=== PATIENT | female | born 1990 | race Caucasian/White ===

== ENCOUNTER 2018-09-20 06:15 | Inpatient (IN) | END 2018-09-22 14:43 | disposition home or self-care (01) | DRG 807 ==

== ENCOUNTER 2019-02-24 06:13 | Day surgery (SDC) | payer MEDICAID ==
[2019-02-24] VITALS (8 sets, daily range): BP systolic 90–116; BP diastolic 62–76; PULSE 73–82; RESP 16–27
[~2019-02-24] VITALS: Ht 152.4 cm; Wt 78.1 kg
[~2019-02-24 06:13] MED LIST: CEFAZOLIN 2 GM/50 ML (PMX) 50 ML IVPB ONE; IBUP-1542 PO; LACTATED RINGER'S 1,000 ML IV* ONE; PREN-39 PO
[2019-02-24] MEDS ORDERED: ACETAMINOPHEN 500 MG TAB PO ONE (06:30)
[2019-02-24] MEDS ORDERED: LIDOCAINE 2% (SDV) 5 ML INJ ONE (07:00)
--- NOTE | 2019-02-24 07:06 | PREAC ---
Date/Time of Note Date/Time of Note DATE: 02/24/19 TIME: 07:05 Anesthesia Eval and Record Evaluation Time Pre-Procedure Interview DATE: 02/24/19 TIME: 07:05 Age 28 Sex female NPO: 8 hrs Preoperative diagnosis elective sterilization Planned procedure laparoscopic tubal fulguration Past Medical History Past Medical History: Includes GI: Obesity Surgery & Anesthesia Issues No known issue Meds Anticoagulation: No Beta Shyam within 24 hr: No Reason Beta Shyam not given: Pt. not on B-Shyam Discontinued Reported Medications Vits W-Ca,Fe,Fa(<1MG) ( Vitamins) 1 Tab Tablet, 1 TAB PO DAILY 06/09/14 Discontinued Scripts Ibuprofen* (Ibuprofen*) 600 Mg Tab, 600 MG PO Q6, #20 TAB 0 Refills Prov:NORMAN CHAMBERS MD 10/04/15 Current Medications Lactated Ringer's 1,000 ml @ 125 mls/hr Q8H ONCE IV* ; Start 02/24/19 at 05:30; Stop 02/24/19 at 13:29 Meds reviewed: Yes Allergies Coded Allergies: No Known Allergy (Unverified , 02/24/19) Allergies Reviewed: Yes Labs/Studies Labs Reviewed: Reviewed by anesthesiologist test: Negative Pre-procedure Exam Airway: Adequate mouth opening, Adequate thyromental dist Mallampati: Mallampati II Teeth: Normal (missing lower left molar) Lung: Normal Heart: Normal ASA Physical Status ASA physical status: 2 Emergency: None Pre-operative Attestations Prior to commencing anesthesia and surgery, the patient was re-evaluated, there was verification of: *The patient's identity *The results of appropriate recent lab work and preoperative vital signs *The above evaluation not changing prior to induction *Anesthetic plan, risk benefits, alternative and complications discussed with patient/family; questions answered; patient/family understands, accepts and wishes to proceed. ABIGAIL SNIDER Feb 24, 2019 07:06
[2019-02-24] MEDS ORDERED: DIPHENHYDRAMINE 50 MG INJ IV PRN (07:30)
[2019-02-24] MEDS ORDERED: ONDANSETRON 4 MG INJ IV PRN (07:30)
[2019-02-24] MEDS ORDERED: ALBUTEROL 0.083% (NEB) 2.5 MG/3 ML AMP HHN PRN (07:30)
[2019-02-24] MEDS ORDERED: FENTAnyl 50 MCG/ML VIAL IV PRN ×2 (07:30)
[2019-02-24] MEDS ORDERED: PROPOFOL 40 ML ONE (07:30)
[2019-02-24] MEDS ORDERED: MEPERIDINE 25 MG INJ IV PRN (07:30)
[2019-02-24] MEDS ORDERED: MIDAZOLAM 1 MG/ML 2 ML INJ ONE (07:30)
[2019-02-24] MEDS ORDERED: morphine (1 MG/ML) 10ML SYRINGE IV PRN ×2 (07:30)
[2019-02-24] MEDS ORDERED: FAMOTIDINE 20 MG INJ ONE (07:30)
[2019-02-24] MEDS ORDERED: LABETALOL HCL 20MG INJ IV PRN (07:30)
[2019-02-24] MEDS ORDERED: HYDROmorphONE 1 MG/5 ML IV SYRINGE IV PRN ×3 (07:30)
[2019-02-24] MEDS ORDERED: OXYCODONE/ACETAMINOPHEN (5/325) TAB PO PRN ×2 (07:30)
[2019-02-24] MEDS ORDERED: CEFAZOLIN 1 GM INJ ONE (07:31)
[2019-02-24] MEDS ORDERED: ROCURONIUM 50 MG INJ ONE (07:31)
[2019-02-24] MEDS ORDERED: ONDANSETRON 4 MG INJ ONE (07:31)
[2019-02-24] MEDS ORDERED: FENTAnyl 50 MCG/ML VIAL ONE (07:31)
[2019-02-24] MEDS ORDERED: SUGAMMADEX SODIUM 200 MG/2 ML VIAL IV ONE (08:00)
[2019-02-24] MEDS ORDERED: BUPIVACAINE 0.25%/EPI (SDV) 30 ML INJ ONE (08:08)
[2019-02-24] MEDS ORDERED: KETOROLAC 30 MG INJ ONE (08:15)
--- NOTE | 2019-02-24 08:51 | PAC ---
Date/Time of Note Date/Time of Note DATE: 02/24/19 TIME: 08:50 Post-Anesthesia Notes Post-Anesthesia Note Last documented vital signs Vital Signs Date Temp Pulse Resp B/P (MAP) Pulse Ox O2 O2 Flow FiO2 Time Delivery Rate 02/24/19 97.9 98 73 84 18 16 106/76 100 100 6L face 07:34 084 (86) 109/ mask 7 75 Activity: WNL Respiratory function: WNL Cardiovascular function: WNL Mental status: Baseline Pain reasonably controlled: Yes Hydration appropriate: Yes Nausea/Vomiting absent: Yes ABIGAIL SNIDER Feb 24, 2019 08:51
--- NOTE | 2019-02-24 09:25 | OPR ---
Date/Time of Note Date/Time of Note DATE: 02/24/19 TIME: 09:23 Operative Report Procedure Date: Feb 24, 2019 Preoperative Diagnosis Desires permanent sterilization Postoperative Diagnosis same Operation/Procedure Performed Laparoscopic bilateral salpingectomies Surgeon Sweetie Ruelas MD [employer] Supervisor none Anesthesia Type: general Estimated Blood Loss: minimal Transfusion none Specimen segments of both tubes Grafts/Implants none Tubes/Drains none Complications none Pt Condition Post Procedure: stable Disposition: PACU Procedure Description FINDINGS: Normal tubes, ovaries bilaterally. Normal uterus. CONSENT: Please see my preop H and P consent in the office for the consent process. DESCRIPTION OF PROCEDURE: She was taken to operating room and general anesthesia was induced. She was prepped and draped in the usual sterile fashion in dorsal lithotomy position. Surgical time-out was done. Anterior lip of the cervix was grasped using a single-tooth tenaculum, and a HUMI was inserted in normal fashion. The tenaculum was removed. There was no bleeding from the cervix. The patient already had a Andino catheter as well. Gloves were changed. A 5 mm incision was developed inside the umbilicus. A blunt trocar was inserted in the normal fashion. Intraperitoneal position was confirmed using the laparoscope. Pneumoperitoneum was obtained. The patient was placed in T rendelenburg position. A second trocar was inserted under direct visualization of the laparoscope at the pubic hairline in the midline. Right tube was coagulated and transected 7 cm medial to fimbriated portion of the tube. Right salpingectomy was performed by coagulating and transecting the mesosalpinx while at all times hugging the tube. The tube was removed and sent to pathology. the edges of the mesosalpinx was not bleeding, but for abundance of precaution, I cauterized the edges of the mesosalpinx again. There was no bleeding. Same procedure was done on the contralateral side. All instruments removed under direct visualization of the laparoscope after pneumoperitoneum was released. There was no bleeding. Skin closed using 4-0 Monocryl. Then 10 mL 0.25% Marcaine with epinephrine was injected at the incision sites. HUMI was removed. There was no bleeding from the vagina. Patient tolerated the procedure well. SWEETIE RUELAS MD Feb 24, 2019 09:25
== END 2019-02-24 10:40 | disposition home or self-care (01) ==
LOC: SDS 06:13
PROVIDERS: ATTEND Specialist
DX: Z30.2 Encounter for sterilization (principal)
CPT/HCPCS: 59151; J0690; J1170; J1885; J2175; J2250; J2405; J3010; Z7512; Z7610; 88302